=== PATIENT | female | born 1975 | race Caucasian/White ===

== ENCOUNTER 2017-01-22 15:49 | Emergency (ER) | payer OTHER ==
[~2017-01-22] VITALS: Ht 160 cm; Wt 118.0 kg
[~2017-01-22 15:49] MED LIST: FLEET ENEMA-AD118 ML PR; MIRALAX255 GM PO
[2017-01-22 17:11] LABS: HEMATOCRIT 40.1 % (36.0-46.0); MCH 28.5 PG (29.0-34.0); MCHC 32.4 G/DL (30.0-36.0); MCV 87.9 FL (83-99); MEAN PLAT.VOLUME 10.2 uM^3 (9.5-12.4); PLATELET COUNT 225 K/uL (156-360); RBC DIS.WIDTH-CV 13.2 % (11.8-14.6); RBC DIS.WIDTH-SD 42.5 % (39-53); RED BLOOD COUNT 4.56 M/uL (3.80-5.20)
[2017-01-22 17:22] LABS: CHLORIDE 106 mEq/L (99-109); SODIUM 140 mEq/L (136-147)
[2017-01-22 17:24] LABS: GLUCOSE 96 mg/dL (70-99)
[2017-01-22 17:25] LABS: ANION GAP 9 MEQ/L (2-14)
[2017-01-22 17:26] LABS: TOTAL BILIRUBIN 0.4 mg/dL (0.0-1.0)
[2017-01-22 17:27] LABS: ALKALINE PHOSPHATASE 105 IU/L (3-129)
[2017-01-22 17:28] LABS: GFR ESTIMATE (CALCULATED) > 59 mL/min/
[2017-01-22 17:29] LABS: UREA NITROGEN (BUN) 12 mg/dL (9-23)
[2017-01-22 17:40] LABS: QUANTITATIVE HCG < 4.0 MIU/ML
[2017-01-22] MEDS ORDERED: NORCO 5/3251 TABLET PO (20:36)
[2017-01-22] MEDS ORDERED: DULOXETINE HCL60 MG PO (20:50)
[2017-01-22] MEDS ORDERED: DESYREL100 MG PO (20:50)
[2017-01-22] MEDS ORDERED: MONTELUKAST SOD10 MG PO (20:50)
[2017-01-22 20:51] VITALS: BP 124/58
[2017-01-22] MEDS ORDERED: ZYRTEC5 MG PO (20:51)
== END 2017-01-22 20:53 | disposition home or self-care (01) ==
LOC: EME 15:49
DX: Q43.8 Other specified congenital malformations of intestine (principal); F41.9 Anxiety disorder, unspecified; Z85.42 Personal history of malignant neoplasm of other parts of uterus; Z90.710 Acquired absence of both cervix and uterus; Z88.2 Allergy status to sulfonamides; Z88.8 Allergy status to other drugs, medicaments and biological substances
CPT/HCPCS: 74177; 80053; 81003; 84702; 85027; 99281; 99284; J7040